=== PATIENT | male | born 1945 | race Caucasian/White ===

== ENCOUNTER 2016-05-29 05:09 | Day surgery (SDC) | payer OTHER ==
[2016-05-28 16:39] VITALS: BMI 22.8
[2016-05-29] MEDS ORDERED: PROPOFOL 20 ML ONE (13:10)
[2016-05-29] MEDS ORDERED: MIDAZOLAM HCL 2 MG/2 ML SINGLE DOSE VIAL ONE (13:10)
[2016-05-29] MEDS ORDERED: LIDOCAINE HCL/PF 2% SDV 5ML VIAL ONE (13:14)
--- NOTE | 2016-05-29 13:20 | HP ---
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 History of Present Illness: patient has undergone numerous surgical procedures on the metatarsal bones of the right foot to remove painful bumps on the bottom when he tries to run. Patient reports he walks ok but when playing tennis and trying to push off he feels the bumps. Although patient has undergone many surgical procedures to remove painful bumps , the patient has found more. He has requested that I remove bumps from the bottoms of the first, second, 4th, and 5th metatarsals. History Source: Medical Record (Medical history deferred to PCP) - Smoking History Smoking history: Never smoked Have you smoked in the past 12 months: No Aproximately how many cigarettes per day: 0 - Alcohol/Substance Use Hx Alcohol Use: No Home Medications - Allergies Allergies/Adverse Reactions: Allergies Allergy/AdvReac Type Severity Reaction Status Date / Time [place] And Derivatives Allergy Intermediate Swelling Verified 05/29/16 12:35 lactose Allergy Intermediate GI UPSET Verified 05/29/16 12:35 naproxen [From Naprosyn] Allergy Intermediate Rash Verified 05/29/16 12:35 nickel [Nickel] Allergy Intermediate Rash Verified 05/29/16 12:35 silver Allergy Mild Rash Verified 05/29/16 12:35 [From Argentum Metallicum] latex AdvReac Unknown Verified 05/29/16 12:35 CHROME Allergy Intermediate Rash Uncoded 05/29/16 12:35 DAIRY Allergy Intermediate STOMACH Uncoded 05/29/16 12:35 UPSET STAINLESS STEEL Allergy Intermediate Rash Uncoded 05/29/16 12:35 - Home Medications Home Medications: Ambulatory Orders NK [No Known Home Medication] 11/11/15 Physical Examination Vital Signs: Vital Signs Temperature 97.4 F L 05/29/16 12:32 Pulse Rate 66 05/29/16 12:32 Respiratory Rate 20 05/29/16 12:32 Blood Pressure 116/68 05/29/16 12:32 O2 Sat by Pulse Oximetry (%) 98 05/29/16 12:31 Extremities: Yes: Other (small palpable irregularities are palpable on the plantar surfaces of the right 1st, 2nd, 4th, and 5th metatarsals.) Peripheral Pulses: Left Doralis Pedis: 2+, Right Dorsalis Pedis: 2+ Assessment/Plan Assessment Patient has a rigid ankle, midfoot, and forefoot. Because of this rigidity, plantar metatarsal weight bearing surface always seems bumpy and painful, even though to the touch it is essentially flat and planar. Conservative measures essentially padding are continuously recommended to the patient but patient insists that just one more surgery will get him right. I have explained that this is unlikely especially because of the rigidity of the right foot. Plan Rasping, planing of bumps on the bottom surfaces of the right 1st, 2nd, 4th, and 5th metatarsal bones. Plantar incisions must be used because the areas cannot be accessed from the dorsum.
[2016-05-29] MEDS ORDERED: ceFAZolin SODIUM 1 GM VIAL ONE (13:54)
[2016-05-29] MEDS ORDERED: BUPIVACAINE HCL/PF 0.5% (5MG/ML) 10 ML VIAL IJ ONE (14:07)
[2016-05-29] MEDS ORDERED: LIDOCAINE 1%/EPI 1:100000 (20 ML MULTI DOSE VIAL) INF ONE (14:07)
[2016-05-29] MEDS ORDERED: DEXAMETHASONE SOD PHOSPHATE 4 MG/1 ML VIAL ONE (14:22)
[2016-05-29] MEDS ORDERED: oxyCODONE HCL 5 MG TABLET PO PRN (15:01)
[2016-05-29] MEDS ORDERED: ONDANSETRON 4 MG/2 ML VIAL IVPUSH PRN (15:01)
[2016-05-29] MEDS ORDERED: LACTATED RINGERS SOLUTION 1,000 ML IV SCH (15:15)
[2016-05-29 16:09] VITALS: BP 111/70; PULSE 62; TEMP 98.4
--- NOTE | 2016-05-30 21:32 | OP ---
DATE OF OPERATION: 05/29/2016 PREOPERATIVE DIAGNOSES: Hyperostosis, metatarsalgia right 1st, 2nd, 4th, and 5th metatarsals distal. POSTOPERATIVE DIAGNOSES: Hyperostosis, metatarsalgia right 1st, 2nd, 4th, and 5th metatarsals distal. PROCEDURE: Ostectomy from right 1st, 2nd, 4th, and 5th metatarsals from plantar insertions. DESCRIPTION OF PROCEDURE: Under fractional anesthesia and a surgical scrub with Betadine scrub and solution x2, the patient was draped using sterile technique. After 3 minutes of right limb elevation, a right ankle tourniquet was inflated to 250 mmHg pressure for 76 minutes. Inspection of the right foot showed essentially normal flat and unblemished plantar surface with the exception of a small scar, hyperostosis on the distal aspect of the 5th metatarsal area. Using a No. 15 surgical blade, a linear longitudinal incision was made on the plantar aspect of the foot in the intermetatarsal space between the right 1st and 2nd metatarsals and a 2nd incision between the right 4th and 5th metatarsals. The incision on the right 4th and 5th metatarsal area included a resection of the distal scar and hyperkeratosis using a double semielliptical-type incision. Both incisions were deepened through fascia and reflected exposing the joint capsule and deep fascia of the right 1st, 2nd, 4th, and 5th metatarsal pharyngeal joint areas. Using a No. 15 surgical blade, a longitudinal incision in the joint capsule was made inferior to the right 1st, 2nd, 4th, and 5th metatarsals. The plantar surfaces of the metatarsals were then inspected, and hyperostosis was identified on the plantar surfaces of all 4 bones. Using a rongeur and a bone rasp, these hyperostosis were resected and the remaining metatarsal was rasped smooth and round so that no prominence was visible or palpable at all 4 metatarsal locations. Following remodeling and resection of all bony prominences, the wounds were copiously irrigated with sterile saline. Individual metatarsal capsulotomy incisions were repaired with 4-0 Vicryl sutures and then the superior skin incisions were repaired with 4-0 Prolene horizontal mattress, and running sutures to promote eversion of skin edges and good plantar healing. Following the closure of the skin, the ankle tourniquet was deflated after 76 minutes of inflammation and vascular perfusion returned to all 5 digits so a dry sterile dressing with an Adaptic was applied to the plantar aspect of the foot. A large package of 4 x 4s were applied in the arch area and incorporated into the bandage to promote patient weightbearing in the arch and not on the metatarsal incisions. Ray bandages were used to complete the dressings. The patient tolerated the surgical procedure well and left the operating room stable, alert, awake and in no pain. MAKENNA GUERRERO/[id number]
--- NOTE | 2016-06-02 12:08 | PATH ---
Surgical Pathology Report Patient Name: CHA FRYE [facility]. Rec. #: [id number] /Age/Gender: 1945 (Age: 70) / M Account: [id number] Location: [facility] Taken: 05/29/2016 Received: 06/01/2016 Reported: 06/02/2016 Physicians: Charlie Grayson M.D. Specimen(s) Received A: SCAR TISSUE RIGHT FOOT B: BONE FRAGMENTS RIGHT FOOT METATARSAL Clinical History First, second, fourth, fifth metatarsalgia right foot Final Diagnosis A. SKIN AND SOFT TISSUE, RIGHT FOOT, SCAR, EXCISION: HYPERKERATOTIC SKIN WITH DERMAL SCAR. B. BONE, RIGHT FOOT, FIRST METATARSAL, OSTEOTOMY: FRAGMENTS OF BONE AND CARTILAGE WITH SCLEROSIS AND FOCAL DEGENERATIVE CHANGES. Electronically Signed Nathan Perez M.D. Gross Description A. Received in formalin, labeled "scar tissue right foot" is a 1.8 x 1.0 cm a solano, elliptical portion of skin excised to a depth of 0.5 cm. Chief Airline Radio Operator sections are submitted in one cassette. B. Received in formalin, labeled "bone pieces right foot metatarsal" is a 2.1 x 1.7 x 0.2 cm aggregate of solano bone fragments. The specimen is submitted in toto in one cassette, following decalcification. 06/01/201606/01/2016
== END 2016-05-29 18:45 | disposition home or self-care (01) ==
LOC: JASU-SURG 05:09
PROVIDERS: ATTEND Podiatrist Foot Surgery
PROC: 0QBN0ZZ Excision of Right Metatarsal, Open Approach (ICD-10-PCS; principal; 2016-05-29 13:30)
DX: M77.41 Metatarsalgia, right foot (principal)
CPT/HCPCS: 73630-TC-RT; 88304-TC; 88311-TC

== ENCOUNTER 2016-07-10 15:14 | Emergency (ER) | payer OTHER ==
[2016-07-10 15:21] VITALS: BMI 22.8
--- NOTE | 2016-07-10 16:59 | PDOC ---
[id number] 4d BLOOD IN URINE Time Seen by Provider: 07/10/16 16:33 - History of Present Illness Initial Comments: 07/10/16 19:48 CHIEF COMPLAINT: hematuria HISTORY OF PRESENT ILLNESS: 70 yo M with hx of multiple R foot surgeries presents to ED with hematuria x 2-3 days. Patient states that he has had this probably intermittently for the last 2 years, and was seen by urologist MD Santoro. He states that "a few months ago I had a retention problem and when they put the catheter, tons of clots came out." He is in the ED today for similar small clots, and reports that "I had a little bit of clots 2-3 days ago , it got better, but then I have had been losing quite a bit of blood in my urine and I feel a little lightheaded and sluggish." No recent travel or sick contacts. PAST MEDICAL HISTORY: Denies past medical history FAMILY HISTORY: Denies SOCIAL HISTORY: Denies tobacco, alcohol, illicit drug use. SURGICAL HISTORY: several foot surgeries ALLERGIES: citrus, lactose, naproxen, nickel, silver, latex, chrome, dairy, stainless steel REVIEW OF SYSTEMS General/Constitutional: Denies fever or chills. Denies weakness, weight change. HEENT: Denies change in vision. Denies ear pain or discharge. Denies sore throat. Cardiovascular: Denies chest pain or shortness of breath. Respiratory: Denies cough, wheezing, or hemoptysis. Gastrointestinal: Denies nausea, vomiting, diarrhea or constipation. Denies rectal bleeding. Genitourinary: Hematuria. Musculoskeletal: Denies joint or muscle swelling or pain. Denies neck or back pain. Skin and breasts: Denies rash or easy bruising. PHYSICAL EXAM General Appearance: Well-appearing, appropriately dressed. No apparent distress. HEENT: EOMI, PERRLA,normal voice. No conjunctival pallor. No photophobia, scleral icterus. Respiratory/Chest: Lungs CTAB. Cardiovascular: RRR. S1, S2. Gastrointestinal/Abdominal: Normal bowel sounds. Abdomen soft, non-distended. No tenderness or rebound tenderness. No organomegaly, pulsatile mass, guarding , hernia, hepatomegaly, splenomegaly. Musculoskeletal/Extremities: Normal inspection. FROM of all extremities, normal capillary refill. Pelvis Stable. No CVA tenderness. No tenderness to extremities, pedal edema, swelling, erythema or deformity. Integumentary: Appropriate color, dry, warm. No cyanosis, erythema, jaundice or rash Neurologic: technical business analyst II-XII intact. Fully oriented, alert. Appropriate mood/affect. Motor strength 5/5. No appreciable EOM palsy, facial droop or sensory deficit Past History - Past Medical History Allergies/Adverse Reactions: Allergies Allergy/AdvReac Type Severity Reaction Status Date / Time [place] And Derivatives Allergy Intermediate Swelling Verified 05/29/16 12:35 lactose Allergy Intermediate GI UPSET Verified 05/29/16 12:35 naproxen [From Naprosyn] Allergy Intermediate Rash Verified 05/29/16 12:35 nickel [Nickel] Allergy Intermediate Rash Verified 05/29/16 12:35 silver Allergy Mild Rash Verified 05/29/16 12:35 [From Argentum Metallicum] latex AdvReac Unknown Verified 05/29/16 12:35 CHROME Allergy Intermediate Rash Uncoded 05/29/16 12:35 DAIRY Allergy Intermediate STOMACH Uncoded 05/29/16 12:35 UPSET STAINLESS STEEL Allergy Intermediate Rash Uncoded 05/29/16 12:35 Home Medications: Ambulatory Orders Ciprofloxacin HCl [Cipro] 500 mg PO BID #14 tablet 07/11/16 Tamsulosin HCl [Flomax] 0.4 mg PO DAILY #10 cap.er.24h 07/11/16 Anemia: No Asthma: No Cancer: No Cardiac Disorders: No CVA: No COPD: No CHF: No Dementia: No Diabetes: No GI Disorders: Yes (WITH DAIRY) Disorders: No HTN: No Hypercholesterolemia: No Liver Disease: No Seizures: No Thyroid Disease: No - Surgical History Abdominal Surgery: Yes Appendectomy: Yes Cardiac Surgery: No Cholecystectomy: No Lung Surgery: No Neurologic Surgery: No Orthopedic Surgery: Yes (HAND -RT; MULTIPLE RIGHT FOOT) - Psycho/Social/Smoking Cessation Hx Suicidal Ideation: No Smoking Status: No Smoking History: Never smoked Have you smoked in the past 12 months: No Number of Cigarettes Smoked Daily: 0 Information on smoking cessation initiated: No Hx Alcohol Use: No Drug/Substance Use Hx: No Substance Use Type: None Hx Substance Use Treatment: No *Physical Exam - Vital Signs Last Vital Signs Temp Pulse Resp BP Pulse Ox 97.7 F 83 19 137/75 97 07/10/16 15:17 07/10/16 15:17 07/10/16 15:17 07/10/16 15:17 07/10/16 15:17 ED Treatment Course - LABORATORY CBC & Chemistry Diagram: 07/10/16 17:25 07/10/16 17:25 Medical Decision Making - Medical Decision Making 07/10/16 19:57 70 yo M with hx of multiple R foot surgeries presents to ED with hematuria x 2- 3 days. Bony blood to urine appreciated on exam. -CBC, CMP -UA, UCx -Renal/bladder ultrasound Abnormal Lab Results 07/10/16 07/10/16 07/10/16 17:25 17:25 17:25 Plt Count 120 L Eosinophils % 5.1 H D BUN 22 H Random Glucose 73 L D Urine Protein 2+ H Urine Blood 3+ H Ur Leukocyte Esterase Trace H Case discussed in detail with oncoming emergency provider including history, physical exam and ancillary studies. In brief, this patient is being seen in the ED for a chief complaint of: I have completed the initial assessment interview note and have ordered the following labs: CBC, CMP, UA, UCx I have reviewed the following results: all Pending results: renal/bladder US Please call the PCP: Luis Alberto Plan for disposition as follows: pending Oncoming NPRenard Calixto has assumed care for the patient and will complete the evaluation and treatment. 07/10/16 19:59 *DC/Admit/Observation/Transfer Diagnosis at time of Disposition: Hematuria - Discharge Dispostion Disposition: HOME Condition at time of disposition: Stable - Prescriptions Prescriptions: Ciprofloxacin HCl [Cipro] 500 mg PO BID #14 tablet Tamsulosin HCl [Flomax] 0.4 mg PO DAILY #10 cap.er.24h - Referrals Referrals: Gray Gaston MD., [Staff Physician] - Vida Sahu MD [Primary Care Provider] - - Patient Instructions Printed Discharge Instructions: DI for Hematuria Additional Instructions: As per our conversation, he needs to follow with the urologist within 48 hours. It is strongly advisable for you to get a cystoscopy to ascertain why you are experiencing blood in your urine. You do not have any fever nor did he have pain. He needs to also follow-up with your primary care physician. Return back to the emergency department for severe/persistent or worsening symptoms. Your preliminary ultrasound and CAT scan report was given to you upon discharge.
[2016-07-10 17:51] LABS: BASOPHIL 0.9 % (0-2.0); EOSINOPHIL 5.1 % (0-4.5); MCH 30.1 pg (25.7-33.7); MCHC 33.3 g/dl (32.0-35.9); MEAN CELL VOLUME 90.4 fl (80-96); MEAN PLT VOLUME 10.9 fl (7.5-11.1); NEUTROPHILS 67.1 % (42.8-82.8); PLATELET COUNT 120 K/MM3 (134-434); RDW 13.9 % (11.9-15.9); WHITE BLOOD COUNT 5.6 K/mm3 (4.0-10.0)
[2016-07-10 17:55] LABS: URINE APPEARANCE CLOUDY; URINE BILIRUBIN NEGATIVE (NEGATIVE); URINE COLOR RED; URINE GLUCOSE (UA) NEGATIVE (NEGATIVE); URINE KETONE NEGATIVE (NEGATIVE); URINE NITRITE NEGATIVE (NEGATIVE); URINE UROBILINOGEN NEGATIVE E.U./dl (0.2-1.0)
[2016-07-10 17:56] LABS: URINE BLOOD 3+ (NEGATIVE); URINE LEUK ESTERASE TRACE (NEGATIVE); URINE PROTEIN 2+ (NEGATIVE)
[2016-07-10 18:19] LABS: ALBUMIN 3.9 g/dl (3.4-5.0); ALK PHOS 107 U/L (45-117); ANION GAP 8 (8-16); BILIRUBIN,TOTAL 0.4 mg/dL (0.2-1.0); CALCIUM 9.5 mg/dL (8.5-10.1); CO2 32 mmol/L (21-32); COCKROFT - GAULT 75.94; CREATININE 0.9 mg/dL (0.7-1.3); GLUCOSE,RANDOM 73 mg/dL (74-106); SGOT/AST 16 U/L (15-37); SGPT/ALT 25 U/L (12-78); TOT PROT 7.5 g/dl (6.4-8.2)
[2016-07-10 19:08] LABS: URINE MUCUS FEW; URINE RBC 2373 /hpf (0-3); URINE WBC 20 /hpf (3-5)
--- NOTE | 2016-07-11 01:18 | PDOC ---
*Physical Exam - Vital Signs Last Vital Signs Temp Pulse Resp BP Pulse Ox 97.7 F 83 19 137/75 97 07/10/16 15:17 07/10/16 15:17 07/10/16 15:17 07/10/16 15:17 07/10/16 15:17 ED Treatment Course - LABORATORY CBC & Chemistry Diagram: 07/10/16 17:25 07/10/16 17:25 - ADDITIONAL ORDERS Additional order review: Laboratory Results 07/10/16 07/10/16 17:25 17:25 Sodium 141 Potassium 4.0 Chloride 101 Carbon Dioxide 32 Anion Gap 8 BUN 22 H Creatinine 0.9 Creat Clearance w eGFR > 60 Random Glucose 73 L D Calcium 9.5 Total Bilirubin 0.4 AST 16 ALT 25 Alkaline Phosphatase 107 Total Protein 7.5 Albumin 3.9 Urine Color Red Urine Appearance Cloudy Urine pH 5.0 Ur Specific [place] 1.016 Urine Protein 2+ H Urine Glucose (UA) Negative Urine Ketones Negative Urine Blood 3+ H Urine Nitrite Negative Urine Bilirubin Negative Urine Urobilinogen Negative Ur Leukocyte Esterase Trace H Urine RBC 2373 Urine WBC 20 Urine Mucus Few 07/10/16 17:25 RBC 4.70 MCV 90.4 MCHC 33.3 RDW 13.9 MPV 10.9 Neutrophils % 67.1 Lymphocytes % 18.9 Monocytes % 8.0 Eosinophils % 5.1 H D Basophils % 0.9 - RADIOLOGY Radiology Studies Ordered: Category Date Time Status SPIRAL- RENAL-STONE CT [CT] Stat CT Scan 07/10/16 22:13 Taken *DC/Admit/Observation/Transfer Diagnosis at time of Disposition: Hematuria - Discharge Dispostion Disposition: HOME Condition at time of disposition: Stable Admit: No - Referrals Referrals: Vida Sahu MD [Primary Care Provider] - Gray Gaston MD., MD [Staff Physician] - - Patient Instructions Printed Discharge Instructions: DI for Hematuria Additional Instructions: As per our conversation, he needs to follow with the urologist within 48 hours. It is strongly advisable for you to get a cystoscopy to ascertain why you are experiencing blood in your urine. You do not have any fever nor did he have pain. He needs to also follow-up with your primary care physician. Return back to the emergency department for severe/persistent or worsening symptoms. Your preliminary ultrasound and CAT scan report was given to you upon discharge.
[2016-07-11 05:48] VITALS: BP 134/74; PULSE 80; TEMP 97.8
== END 2016-07-11 01:58 | disposition home or self-care (01) ==
LOC: JER 15:14
DX: R31.9 Hematuria, unspecified (principal)
CPT/HCPCS: 36415; 74176; 76775-TC; 76856-TC; 80053; 81003; 81015; 85025; 87086; 99283-25

== ENCOUNTER 2016-09-25 06:11 | Day surgery (SDC) | payer OTHER ==
[2016-09-17 15:06] VITALS: BMI 22.8
[2016-09-25] MEDS ORDERED: MIDAZOLAM HCL 2 MG/2 ML SINGLE DOSE VIAL ONE (09:41)
[2016-09-25] MEDS ORDERED: PROPOFOL 20 ML ONE (09:41)
--- NOTE | 2016-09-25 09:45 | HP ---
Admitting History and Physical - Primary Care Physician PCP: Charlie Grayson ([place]) - Admission Chief Complaint: Palpable lumb or bump on the distal aspect of the right 4th metatarsal had that presents pain on ambulation. History of Present Illness: Patient has undergone multiple reconstructive surgical procedures on the plantar aspect of the right foot to "equalize" the metatarsal bone prominences. He has developed a new pressure point that he finds difficult to walk on. He always declines accommodation and requires surgical excision. History Source: Medical Record - Smoking History Smoking history: Never smoked Have you smoked in the past 12 months: No Aproximately how many cigarettes per day: 0 - Alcohol/Substance Use Hx Alcohol Use: No Home Medications - Allergies Allergies/Adverse Reactions: Allergies Allergy/AdvReac Type Severity Reaction Status Date / Time [place] And Derivatives Allergy Intermediate Swelling Verified 09/25/16 09:03 lactose Allergy Intermediate GI UPSET Verified 09/25/16 09:03 naproxen [From Naprosyn] Allergy Intermediate Rash Verified 09/25/16 09:03 nickel [Nickel] Allergy Intermediate Rash Verified 09/25/16 09:03 silver Allergy Mild Rash Verified 09/25/16 09:03 [From Argentum Metallicum] latex AdvReac Unknown Verified 09/25/16 09:03 CHROME Allergy Intermediate Rash Uncoded 09/25/16 09:03 DAIRY Allergy Intermediate STOMACH Uncoded 09/25/16 09:03 UPSET STAINLESS STEEL Allergy Intermediate Rash Uncoded 09/25/16 09:03 - Home Medications Home Medications: Ambulatory Orders Finasteride [Proscar -] 5 mg PO DAILY 09/17/16 Physical Examination Vital Signs: Vital Signs Temperature 97.4 F L 09/25/16 08:52 Pulse Rate 71 09/25/16 08:52 Respiratory Rate 18 09/25/16 08:52 Blood Pressure 121/75 09/25/16 08:52 O2 Sat by Pulse Oximetry (%) 97 09/25/16 08:53 Extremities: Yes: Other (small palpable bone prominence on the distal aspect of the right 4th metatarsal.) Assessment/Plan Assessment Mild hyperostosis right plantar distal 4th metatarsal Plan Resection through plantar incision because it is not accessible from the dorsum.
[2016-09-25] MEDS ORDERED: ceFAZolin SODIUM 1 GM VIAL ONE (10:04)
[2016-09-25] MEDS ORDERED: LIDOCAINE 1%/EPI 1:100000 (20 ML MULTI DOSE VIAL) INF ONE (10:17)
[2016-09-25] MEDS ORDERED: BUPIVACAINE HCL/PF 0.5% (5MG/ML) 10 ML VIAL IJ ONE (10:17)
[2016-09-25] MEDS ORDERED: ACETAMINOPHEN 325 MG TABLET (FP) PO PRN (10:54)
[2016-09-25] MEDS ORDERED: ONDANSETRON 4 MG/2 ML VIAL IVPUSH PRN (10:54)
[2016-09-25] MEDS ORDERED: LACTATED RINGERS SOLUTION 1,000 ML IV SCH (11:00)
[2016-09-25 11:35] VITALS: TEMP 98.2
--- NOTE | 2016-09-25 12:04 | OP ---
DATE OF OPERATION: 09/25/2016 PREOPERATIVE DIAGNOSES: Hyperostosis plantar aspect of the left 4th metatarsal. POSTOPERATIVE DIAGNOSES: Hyperostosis plantar aspect of the left 4th metatarsal. PROCEDURE: Rasping of the plantar aspect of the 4th metatarsal. DESCRIPTION OF PROCEDURE: Under fractional anesthesia and a surgical scrub with Betadine scrub and solution x2, the patient was draped using sterile technique. Inspection of the plantar aspect of the right foot showed a palpable, prominent bump subcutaneously on the distal aspect of the right 4th metatarsal. Using a No. 15 surgical blade, a linear longitudinal incision was made in the plantar aspect of the right foot just medial to the palpable prominence. The incision was deepened through fascia and retracted. The tissue was longitudinally incised, and the plantar aspect of the 4th metatarsal was exposed. Inspection of the plantar 4th metatarsal shaft showed minor hyperostosis-type projections from the bottom of the 4th metatarsal. Using a bone rasp, these were smoothed and then the wound was copiously irrigated with sterile saline. It should be noted that there was no tissue for excision. The plantar aspect of the bone was simply rasped smooth. Following irrigation, the soft tissues were reapproximated as a single layer and closed with 4-0 nylon mattress and simple sutures. A dry sterile dressing was applied to the right foot. The patient tolerated the surgical procedure well and left the operating room stable, alert, awake and in no pain. MAKENNA GUERRERO/[id number]
[2016-09-25 14:43] VITALS: BP 110/64; PULSE 65
[2016-09-26] MEDS ORDERED: FINASTERIDE PO SCH (10:00)
== END 2016-09-25 14:56 | disposition home or self-care (01) ==
LOC: JASU-SURG 06:11
PROVIDERS: ATTEND Podiatrist Foot Surgery
PROC: 0QTN0ZZ Resection of Right Metatarsal, Open Approach (ICD-10-PCS; principal; 2016-09-25 10:00)
DX: M77.41 Metatarsalgia, right foot (principal)
CPT/HCPCS: 73630-TC-RT; 94760

== ENCOUNTER 2017-11-20 19:17 | Emergency (ER) | payer OTHER ==
[2017-11-20 19:27] VITALS: BP 133/80; PULSE 63; TEMP 98; BMI 21.5
--- NOTE | 2017-11-20 21:19 | PDOC ---
Attending Attestation - Resident Resident Name: Chata Woods - ED Attending Attestation I have performed the following: I have examined & evaluated the patient, The case was reviewed & discussed with the resident, I agree w/resident's findings & plan - HPI HPI: 11/20/17 22:32 The patient is a 71 year old male, with no significant past medical history, who presents to the emergency department with, left sided pain. As per patient, he woke up with left sided pain, worsening when sitting down. As per patient, he was just on two rounds of antibiotics after an oral bone graft procedure. Ever since taking his second course of antibiotics he reports his bowel movements have been loose. He reports 1 week of mild lightheadedness which resolves with playing tennis. He denies any recent fevers, chills, headache or dizziness. He denies any recent nausea, vomit, or constipation. He denies any recent chest pain or shortness of breath. He denies any recent dysuria, frequency, urgency or hematuria. Past surgical history: Bone graft. Appendectomy. Hernia repair. Social History: Nonsmoker. Denies EtOH use and recreational drug use. Primary Care Physician: Dr. Sahu - Physicial Exam PE: 11/20/17 22:32 GENERAL: Awake, alert, and fully oriented, in no acute distress HEAD: No signs of trauma EYES: PERRLA, EOMI, sclera anicteric, conjunctiva clear ENT: Auricles normal inspection, hearing grossly normal, nares patent, oropharynx clear without exudates. Moist mucosa NECK: Normal ROM, supple, no lymphadenopathy, JVD, or masses LUNGS: Breath sounds equal, clear to auscultation bilaterally. No wheezes, and no crackles HEART: Regular rate and rhythm, normal S1 and S2, no murmurs, rubs or gallops +ABDOMEN: Gassy bowel sounds. Soft, nontender. No guarding, no rebound. No masses EXTREMITIES: Normal range of motion, no edema. No clubbing or cyanosis. No cords, erythema, or tenderness NEUROLOGICAL: Cranial nerves II through XII grossly intact. Normal speech, normal gait SKIN: Warm, Dry, normal turgor, no rashes or lesions noted. <Mavis Espinal - Last Filed: 11/20/17 22:32> - Medical Decision Making 11/21/17 00:32 Pt has a UTI and he will be treated with bactrim DS. Home with meds and PMD follow up. <Ilana Ocampo - Last Filed: 11/21/17 00:33> Attestations - Attestations 11/20/17 22:33 Documentation prepared by Mavis Espinal, acting as medical practitioners for Ilana Ocampo MD. <Mavis Espinal - Last Filed: 11/20/17 22:32>
--- NOTE | 2017-11-20 21:20 | PDOC ---
History of Present Illness - General Chief Complaint: Pain Stated Complaint: PAIN, ACUTE Time Seen by Provider: 11/20/17 20:55 History Source: Patient Exam Limitations: No Limitations - History of Present Illness Initial Comments: 11/20/17 21:11 Pt is a 71yo m with no significant PMH presenting to ED with left sided pain. Pt said today he awoke to acute pain on his L side which didn't go away. It does not radiate to the abdomen or back. It gets worse when he slouches in his chair. Pt said he Googled symptoms and thought he might have a PE. Pt said he had a bone graft surgery in his jaw about a month ago and was placed on 2 antibiotics. He was placed on the second one around 1 week ago and said that his "bowels have been messed up". He has been having looser stools and started feeling "Mild lightheadedness" for 1 week which goes away when he plays tennis. Pt plays tennis and recently started playing again last week. He denies dizziness, shortness of breath, palpitations, chest pain, cough, numbness, tingling, urinary symptoms, N/V/D PCP: Dr. Sahu PMH: none PSH: bone graft, appendectomy, hernia repair Meds: antibiotics Social: denies 11/20/17 21:22 Past History - Past Medical History Allergies/Adverse Reactions: Allergies Allergy/AdvReac Type Severity Reaction Status Date / Time Solon And Derivatives Allergy Intermediate Swelling Verified 11/20/17 19:27 lactose Allergy Intermediate GI UPSET Verified 11/20/17 19:27 naproxen [From Naprosyn] Allergy Intermediate Rash Verified 11/20/17 19:27 nickel [Nickel] Allergy Intermediate Rash Verified 11/20/17 19:27 silver Allergy Mild Rash Verified 11/20/17 19:27 [From Argentum Metallicum] latex AdvReac Unknown Verified 11/20/17 19:27 CHROME Allergy Intermediate Rash Uncoded 11/20/17 19:27 DAIRY Allergy Intermediate STOMACH Uncoded 11/20/17 19:27 UPSET STAINLESS STEEL Allergy Intermediate Rash Uncoded 11/20/17 19:27 Home Medications: Ambulatory Orders Finasteride [Proscar -] 5 mg PO DAILY 09/17/16 Sulfamethoxazole/Trimethoprim [Bactrim Ds -] 1 tab PO BID #14 tablet 11/20/17 Anemia: No Asthma: No Cancer: No Cardiac Disorders: No CVA: No COPD: No CHF: No Dementia: No Diabetes: No GI Disorders: Yes (WITH DAIRY) Disorders: No HTN: No Hypercholesterolemia: No Liver Disease: No Seizures: No Thyroid Disease: No - Surgical History Abdominal Surgery: Yes Appendectomy: Yes Cardiac Surgery: No Cholecystectomy: No Lung Surgery: No Neurologic Surgery: No Orthopedic Surgery: Yes (HAND -RT; MULTIPLE RIGHT FOOT) - Immunization History Immunization Up to Date: No - Suicide/Smoking/Psychosocial Hx Smoking Status: No Smoking History: Never smoked Have you smoked in the past 12 months: No Number of Cigarettes Smoked Daily: 0 Information on smoking cessation initiated: No Hx Alcohol Use: No Drug/Substance Use Hx: No Substance Use Type: None Hx Substance Use Treatment: No Review of Systems - Review of Systems Constitutional: No: Chills, Fever, Weakness HEENTM: No: Recent change in vision, Double Vision Respiratory: No: Cough, Shortness of Breath Cardiac (ROS): Yes: Lightheadedness. No: Chest Pain, Palpitations, Syncope ABD/GI: No: Abd. Pain w/ defecation, Constipated, Diarrhea, Nausea, Rectal Bleeding, Vomiting : Yes: Flank Pain. No: Burning, Dysuria, Hematuria, Testicular Mass, Testicular Swelling, Testicular Pain Musculoskeletal: Yes: Muscle Pain (L sided back pain). No: Joint Pain, Muscle Weakness Neurological: No: Headache, Numbness, Paresthesia, Weakness *Physical Exam - Vital Signs Last Vital Signs Temp Pulse Resp BP Pulse Ox 98.0 F 63 16 133/80 100 11/20/17 19:25 11/20/17 19:25 11/20/17 19:25 11/20/17 19:25 11/20/17 19:25 - Physical Exam General Appearance: Yes: Nourished, Appropriately Dressed. No: Apparent Distress HEENT: positive: EOMI, LEA, Pharynx Normal, Other (Lower jaw is not erythematous, no drainage. healing. ). negative: Gray Neck: positive: Trachea midline, Supple. negative: Lymphadenopathy (R), Lymphadenopathy (L) Respiratory/Chest: positive: Lungs Clear, Normal Breath Sounds. negative: Crackles, Rales, Stridor, Wheezing Cardiovascular: positive: Regular Rhythm, Regular Rate, S1, S2. negative: JVD, Murmur Vascular Pulses: Dorsalis-Pedis (R): 2+, Doralis-Pedis (L): 2+ Gastrointestinal/Abdominal: positive: Normal Bowel Sounds, Soft. negative: Guarding, Rebound, Tenderness Musculoskeletal: positive: Other. negative: CVA Tenderness (R), CVA Tenderness (L), Vertebral Tenderness Extremity: positive: Normal Capillary Refill Integumentary: positive: Normal Color, Dry, Warm Neurologic: positive: neonatal social worker II-XII NML intact, Fully Oriented, Alert, Normal Mood/ Affect, Normal Response, Motor Strength 07/31 ED Treatment Course - LABORATORY CBC & Chemistry Diagram: 11/20/17 21:48 11/20/17 21:48 Medical Decision Making - Medical Decision Making 11/20/17 21:57 Pt is a 71yo m with no significant PMH presenting to ED with left sided pain. DDx: nephrolithiasis, pyelonephritis, colitis, PNA, ACS, msk loose stools most likely related to antibiotic use. Low suspicion for abdominal etiologies of pain. Vitals wnl, no chest pain, no medical conditions, low suspcion for ACS. No fever, cough, SOB, low suspicion for pna. Will order UA, UC check labs. 11/20/17 22:49 UA showed 2+ le and 22 wbc. Will treat for uti. Pt given dose here in ED and will take PO. Pt hemodynamically stable, afebrile and said pain is not intense. Pt can be d/c home. pt given strict return precautions. *DC/Admit/Observation/Transfer Diagnosis at time of Disposition: UTI (urinary tract infection) Qualifiers: Urinary tract infection type: site unspecified Hematuria presence: without hematuria Qualified Code(s): N39.0 - Urinary tract infection, site not specified - Discharge Dispostion Disposition: HOME Condition at time of disposition: Improved Decision to Admit order: No - Prescriptions Prescriptions: Sulfamethoxazole/Trimethoprim [Bactrim Ds -] 1 tab PO BID #14 tablet - Referrals Referrals: Vida Sahu MD [Primary Care Provider] - - Patient Instructions Additional Instructions: You were seen here today because you were having left sided pain. We did some lab work and checked your urine. Your results showed a urinary tract infection. Please follow up with your PCP within the next few days. Try to rest, do not over exert yourself and drink lots of water. You can take ibuprofen or Tylenol for pain control as needed. Please come back to the ED if: the pain gets worse, you notice blood in your urine, you are unable to urinate, you feel more lightheaded, you start to vomit , diarrhea gets worse, you develop fever/chills, you start to feel dizzy, if you lose consciousness or if any new concerning symptom develops. Thank you - Post Discharge Activity
[2017-11-20 21:57] LABS: BASO % 0.7 % (0-2.0); EOS % 0.6 % (0-4.5); HEMATOCRIT 39.2 % (35.4-49); HEMOGLOBIN 13.3 GM/dL (11.7-16.9); LYMPH % 8.8 % (8-40); MCH 30.8 pg (25.7-33.7); MCHC 33.9 g/dl (32.0-35.9); MEAN CELL VOLUME 90.8 fl (80-96); MEAN PLT VOLUME 10.3 fl (7.5-11.1); MONO % 5.9 % (3.8-10.2); PLATELET COUNT 128 K/MM3 (134-434); RBC 4.32 M/mm3 (4.00-5.60); RDW 13.8 % (11.9-15.9)
[2017-11-20 22:10] LABS: URINE APPEARANCE CLEAR; URINE BILIRUBIN NEGATIVE (<2.0 mg/dL); URINE COLOR LTYELLOW; URINE GLUCOSE (UA) NEGATIVE (NEGATIVE); URINE KETONE TRACE (NEGATIVE); URINE NITRITE NEGATIVE (NEGATIVE); URINE PROTEIN NEGATIVE (NEGATIVE); URINE UROBILINOGEN NEGATIVE mg/dL (0.2-1.0)
[2017-11-20 22:16] LABS: URINE LEUK ESTERASE 2+ (NEGATIVE)
[2017-11-20 22:21] LABS: EPI CELLS RARE /HPF (FEW); URINE MUCUS RARE
[2017-11-20 22:22] LABS: ALBUMIN 3.6 g/dl (3.4-5.0); ANION GAP 6 MMOL/L (8-16); BILIRUBIN,TOTAL 0.3 mg/dL (0.2-1.0); BLOOD UREA NITROGEN 28 mg/dL (7-18); CALCIUM 8.8 mg/dL (8.5-10.1); CHLORIDE 105 mmol/L (98-107); CO2 28 mmol/L (21-32); CREATININE 1.3 mg/dL (0.7-1.3); GLUCOSE,RANDOM 97 mg/dL (74-106); POTASSIUM 4.3 mmol/L (3.5-5.1); SGOT/AST 22 U/L (15-37); SGPT/ALT 28 U/L (12-78); SODIUM 139 mmol/L (136-145)
[2017-11-20] MEDS ORDERED: SULFAMETHOXAZOLE/TRIMETHOPRIM 800MG/160MG D.S. TABLET PO ONE (22:22)
[2017-11-20 22:23] LABS: ALK PHOS 109 U/L (45-117)
[2017-11-20] MEDS ORDERED: ACETAMINOPHEN 325 MG TABLET (FP) PO ONE (22:30)
[2017-11-20] MEDS ORDERED: ACETAMINOPHEN 325 MG TABLET (FP) ONE (22:53)
[2017-11-20] MEDS ORDERED: SULFAMETHOXAZOLE/TRIMETHOPRIM 800MG/160MG D.S. TABLET ONE (22:54)
== END 2017-11-20 22:58 | disposition home or self-care (01) ==
LOC: JERFT 19:17 → JER 19:17
DX: N39.0 Urinary tract infection, site not specified (principal)
CPT/HCPCS: 36415; 80053; 81003; 81015; 85025; 87086; 99283-25

== ENCOUNTER 2018-03-18 05:09 | Day surgery (SDC) | payer OTHER ==
[2018-03-09 15:12] VITALS: BMI 21.5
[2018-03-18] MEDS ORDERED: ONDANSETRON 4 MG/2 ML VIAL IVPUSH PRN (16:21)
[2018-03-18] MEDS ORDERED: PROMETHAZINE HCL 25 MG/1 ML VIAL IVPB PRN (16:21)
[2018-03-18] MEDS ORDERED: LACTATED RINGERS SOLUTION 1,000 ML IV SCH (16:30)
[2018-03-18] MEDS ORDERED: PROPOFOL 20 ML ONE ×2 (16:55→18:08)
[2018-03-18] MEDS ORDERED: MIDAZOLAM HCL 2 MG/2 ML SINGLE DOSE VIAL ONE (16:55)
[2018-03-18] MEDS ORDERED: SODIUM CHLORIDE 0.9% P/F 10 ML VIAL IJ ONE (16:56)
[2018-03-18] MEDS ORDERED: ceFAZolin SODIUM 1 GM VIAL ONE (16:56)
[2018-03-18] MEDS ORDERED: BUPIVACAINE HCL/PF 0.5% (5MG/ML) 10 ML VIAL ONE (17:09)
[2018-03-18] MEDS ORDERED: ceFAZolin SODIUM 1 GM VIAL IVPB ONE (17:12)
[2018-03-18 20:42] VITALS: BP 133/69; PULSE 71; TEMP 97.9
--- NOTE | 2018-03-19 07:10 | OP ---
DATE OF OPERATION: 03/18/2018 SURGEON: Charlie Grayson DPM PREOPERATIVE DIAGNOSES: 1. Right bunion with lateral hallux valgus. 2. Right 4th metatarsal pain, metatarsalgia, distal and proximal 4th metatarsal. 3. 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 4. Right 5th metatarsalgia. PROCEDURES: 1. Right Heart type bunionectomy. 2. Ostectomy of the right 4th metatarsal both distal and proximal. 3. Ostectomy of the right 5th metatarsal distal. 4. Arthroplasty of the right 4th toe proximal interphalangeal joint. Under fractional anesthesia and a surgical scrub with Betadine scrub and solution x2 the patient was draped using sterile technique. After 3 minutes of right limb elevation a right ankle tourniquet was inflated to 250 mmHg pressure for 78 minutes. Inspection of the right foot showed a significantly laterally and dorsally displaced hallux on the 1st metatarsal and palpation of the right foot showed bony prominences below the 5th metatarsal head or distal aspect of the right 5th metatarsal, the proximal aspect of the 5th toe base and the distal and proximal aspects of the right 4th metatarsal. Also a prominent proximal phalangeal head was noted and complained of by the patient at the right 4th toe. Using a No. 15 surgical blade a linear longitudinal incision was made on the plantar aspect of the right foot between the base of the 5th toe and the 5th metatarsal distal. The incision was deepened through fascia and deep tissue exposing bony prominences at both sites. Using a bone rasp these bony prominences were gently smoothed. The lateral aspect of the 5th metatarsal head was similarly smoothed with the bone rasp and the distal aspect of the plantar 5th metatarsal was gently smoothed with the bone rasp. The wound was irrigated with sterile saline and then 4-0 Vicryl was used to close soft tissues deeply and then 4-0 nylon simple interrupted sutures were used to close the skin at the site. Attention was then directed to the plantar aspect and proximal aspect of the right foot at the base of the 4th metatarsal. A curvilinear incision was made just medial to the 4th metatarsal being careful not to interrupt deep tissues more medially. The bony prominence of the base of the 4th metatarsal was identified and it was resected using a rongeur and a bone rasp. The wound was copiously irrigated with sterile saline and then deep tissues were closed with 4-0 Vicryl and skin with 4-0 nylon simple interrupted sutures. Attention was then directed to the distal aspect of the 4th metatarsal. A 1-cm linear longitudinal incision was made just medial to the bony prominence that was identified on palpation. The incision was deepened to bone and reflected exposing the bone exostosis. This was resected using the bone rasp. The wound was irrigated with sterile saline and then closed in similar fashion to the prior incisions. Attention was then directed to the dorsal aspect of the right foot where the 4th toe was laterally deviated and hammered. The patient complained of significant pain at the head of the proximal phalanx so a longitudinal incision was made at the site. The head of the proximal phalanx that was fused to the middle phalanx could not be at the joint so using a bone-cutting forceps proximal and distal osteotomy was performed to remove the prominent bone. The wound was irrigated with sterile saline and then closed using 4-0 Vicryl and 4-0 nylon in similar fashion to the other incisions. Lastly attention was directed to the rigidly dorsiflexed and laterally positioned hallux at the 1st metatarsophalangeal joint. A linear longitudinal incision was made at the dorsal aspect of the 1st metatarsophalangeal joint. Superficial tissues were longitudinally incised and reflected. A large dense fibrotic plug of soft tissue was found where bone and joint used to be. Using a No. 15 blade a lateral incision was made into the soft tissue structures, the fibrosis, scar tissue, pseudarthrosis at the site and then the toe was adducted towards the body to straighten it. It was impossible for me to plantarflex the toe to any significant degree, but the toe was positioned into the most anatomically correct position possible and then splintage was completed with a 0.062 Denise wire. The wire was bent over and cut and exposed at the distal aspect of the toe. Deep tissues were then reapproximated with 4-0 Vicryl and sutured and then skin was reapproximated and closed with 4-0 nylon simple interrupted sutures as previously described. The ankle tourniquet was deflated after 78 minutes of inflation. Vascular perfusion immediately returned to all 5 digits so a dry sterile dressing was applied to the right foot. The patient tolerated the surgical procedure well and left the operating room stable, alert, awake and in no pain. MAKENNA GUERRERO/[id number]
--- NOTE | 2018-03-24 18:25 | PATH ---
Surgical Pathology Report Patient Name: [facility]. Rec. #: [id number] /Age/Gender: 1945 (Age: 72) / M Account: [id number] Location: [facility] SURGICAL Taken: 03/18/2018 Received: 03/21/2018 Reported: 03/24/2018 Physicians: Charlie Grayson M.D. Specimen(s) Received BONE FROM 4TH METATARSAL RIGHT FOOT Clinical History Hallux valgus/metatarsalgia/hammer toe right foot Final Diagnosis FOOT, FOURTH METATARSAL BONE, RIGHT, DUNCAN BUNIONECTOMY, OSTEOTOMY, FOURTH METATARSAL BASE ARTHROPLASTY: BONE WITH DEGENERATIVE CHANGES. DENSE FIBROCONNECTIVE TISSUE AND FIBROVASCULAR TISSUE. Electronically Signed Stefani Alarcon M.D. Gross Description Received in formalin labeled "bone from fourth metatarsal right foot" are multiple irregular fragments of white-solano bone and soft tissue measure 1.5 x 1.5 x 1 cm in aggregate. The entire specimen is submitted after decalcification in one cassette. MLSZ/03/21/2018 sanml/03/21/2018
== END 2018-03-18 20:30 | disposition home or self-care (01) ==
LOC: JASU-SURG 05:09
PROVIDERS: ATTEND Podiatrist Foot Surgery
PROC: 0QBN0ZZ Excision of Right Metatarsal, Open Approach (ICD-10-PCS; 2018-03-18)
PROC: 0SQP0ZZ Repair Right Toe Phalangeal Joint, Open Approach (ICD-10-PCS; 2018-03-18)
PROC: 0QBN0ZZ Excision of Right Metatarsal, Open Approach (ICD-10-PCS; 2018-03-18)
PROC: 0QBQ0ZZ Excision of Right Toe Phalanx, Open Approach (ICD-10-PCS; principal; 2018-03-18 15:30)
DX: M20.11 Hallux valgus (acquired), right foot (principal); M77.41 Metatarsalgia, right foot; M20.41 Other hammer toe(s) (acquired), right foot
CPT/HCPCS: 88305-TC; 88311-TC; 94760

== ENCOUNTER 2020-10-07 04:56 | Day surgery (SDC) | payer OTHER ==
[2020-10-04 19:24] VITALS: BMI 20.7
[2020-10-07] MEDS ORDERED: MIDAZOLAM HCL 2 MG/2 ML SINGLE DOSE VIAL ONE ×3 (09:21→11:55)
[2020-10-07] MEDS ORDERED: PROPOFOL 20 ML ONE ×3 (09:21→12:52)
[2020-10-07] MEDS ORDERED: BUPIVACAINE HCL 100 ML ONE (10:52)
[2020-10-07] MEDS ORDERED: LIDOCAINE 1%/EPI 1:100000 (20 ML MULTI DOSE VIAL) ONE (10:52)
[2020-10-07] MEDS ORDERED: ceFAZolin 2 GRAM PREMIX BAG IVPB ONE (12:00)
[2020-10-07] MEDS ORDERED: LIDOCAINE 1%/EPI 1:100000 (20 ML MULTI DOSE VIAL) IJ ONE (12:15)
[2020-10-07] MEDS ORDERED: BUPIVACAINE HCL/PF 0.5% (5MG/ML) 10 ML VIAL IJ ONE (12:15)
[2020-10-07] MEDS ORDERED: oxyCODONE HCL 5 MG TABLET PO PRN (13:06)
[2020-10-07] MEDS ORDERED: ONDANSETRON 4 MG/2 ML VIAL IVPUSH PRN (13:06)
[2020-10-07] MEDS ORDERED: LACTATED RINGERS SOLUTION 1,000 ML IV SCH (13:15)
[2020-10-07 15:33] VITALS: TEMP 97.9
[2020-10-07 16:16] VITALS: BP 122/76; PULSE 68
== END 2020-10-07 15:30 | disposition home or self-care (01) ==
LOC: JASU-SURG 04:56
PROVIDERS: ATTEND Podiatrist Foot Surgery
PROC: 0QSP04Z Reposition Left Metatarsal with Internal Fixation Device, Open Approach (ICD-10-PCS; 2020-10-07)
PROC: 0SNN0ZZ Release Left Metatarsal-Phalangeal Joint, Open Approach (ICD-10-PCS; principal; 2020-10-07 11:30)
DX: S93.145A Subluxation of metatarsophalangeal joint of left lesser toe(s), initial encounter (principal); M21.612 Bunion of left foot; X58.XXXA Exposure to other specified factors, initial encounter; Y93.9 Activity, unspecified; Y92.9 Unspecified place or not applicable; Y99.9 Unspecified external cause status
CPT/HCPCS: 73610-TC-LT-FY; 73630-TC-LT; 88304-TC; 88311-TC; 94760

== ENCOUNTER 2021-03-20 19:10 | Inpatient (IN) | payer OTHER ==
[2021-03-20] MEDS ORDERED: VANCOMYCIN 1 GM in D5W (PRE-DOCKED) 1,000 MG/250 ML IVPB ONE (20:53)
[2021-03-20] MEDS ORDERED: CLINDAMYCIN 600MG PREMIX IVPB 600 MG/50 ML BAG IVPB ONE ×2 (20:55→21:12)
[2021-03-20 21:18] LABS: BASO % 0.4 % (0-2.0); EOS % 4.7 % (0-4.5); HEMATOCRIT 31.5 % (35.4-49); HEMOGLOBIN 10.6 GM/dL (11.7-16.9); LYMPH % 12.9 % (8-40); MCH 30.6 pg (25.7-33.7); MCHC 33.6 g/dl (32.0-35.9); MEAN CELL VOLUME 91.1 fl (80-96); MEAN PLT VOLUME 9.7 fl (7.5-11.1); PLATELET COUNT 157 10^3/uL (134-434); RBC 3.46 M/mm3 (4.00-5.60); RDW 13.9 % (11.9-15.9); WHITE BLOOD COUNT 5.7 K/mm3 (4.0-10.0)
[2021-03-20 21:48] LABS: ALBUMIN 2.4 g/dl (3.4-5.0); BLOOD UREA NITROGEN 13.5 mg/dL (7-18); CALCIUM 8.3 mg/dL (8.5-10.1)
[2021-03-20 21:51] LABS: CREATININE 0.5 mg/dL (0.55-1.3)
[2021-03-20 21:53] LABS: BILIRUBIN,TOTAL 0.5 mg/dL (0.2-1); TOT PROT 5.5 g/dl (6.4-8.2)
[2021-03-21] MEDS ORDERED: ceFAZolin SODIUM 1 GM VIAL ONE ×3 (02:39→16:36)
[2021-03-21] MEDS: CEFAZOLIN 1 GM in DEXTROSE 5%-WATER - 50 ML IVPB SCH ×3 (02:58→17:38)
[2021-03-21 05:47] VITALS: BMI 22.4
[2021-03-21] MEDS ORDERED: DEXTROSE 5%-WATER - 50 ML IVPB ONE ×2 (09:24→16:37)
[2021-03-21] MEDS: ENOXAPARIN NA (PORCINE) 40 MG/0.4 ML DISP.SYRIN SQ SCH (09:36)
[2021-03-21 10:39] LABS: BASO % 0.6 % (0-2.0); EOS % 7.5 % (0-4.5); HEMATOCRIT 29.4 % (35.4-49); HEMOGLOBIN 9.9 GM/dL (11.7-16.9); LYMPH % 19.8 % (8-40); MCH 30.7 pg (25.7-33.7); MCHC 33.6 g/dl (32.0-35.9); MEAN CELL VOLUME 91.3 fl (80-96); MEAN PLT VOLUME 9.7 fl (7.5-11.1); MONO % 9.2 % (3.8-10.2); NEUT % 62.9 % (42.8-82.8); PLATELET COUNT 157 10^3/uL (134-434); RBC 3.22 M/mm3 (4.00-5.60); RDW 13.8 % (11.9-15.9); RETICULOCYTES 2.46 % (0.5-1.5); WHITE BLOOD COUNT 4.5 K/mm3 (4.0-10.0)
[2021-03-21 10:46] LABS: CALCIUM 8.1 mg/dL (8.5-10.1)
[2021-03-21 10:47] LABS: ALBUMIN 2.1 g/dl (3.4-5.0); BLOOD UREA NITROGEN 11.4 mg/dL (7-18)
[2021-03-21 10:49] LABS: CREATININE 0.6 mg/dL (0.55-1.3)
[2021-03-21 10:51] LABS: BILIRUBIN,TOTAL 0.3 mg/dL (0.2-1)
[2021-03-21] MEDS ORDERED: POTASSIUM CHLORIDE TABS 20 MEQ TABLET.ER (FP) PO ONE (11:35)
[2021-03-21 11:57] LABS: MAGNESIUM 2.3 mg/dL (1.8-2.4)
[2021-03-22] MEDS ORDERED: DEXTROSE 5%-WATER - 50 ML IVPB ONE ×3 (00:06→16:49)
[2021-03-22] MEDS ORDERED: ceFAZolin SODIUM 1 GM VIAL ONE ×3 (00:06→16:49)
[2021-03-22] MEDS: CEFAZOLIN 1 GM in DEXTROSE 5%-WATER - 50 ML IVPB SCH ×3 (01:11→18:26)
[2021-03-22] MEDS: ENOXAPARIN NA (PORCINE) 40 MG/0.4 ML DISP.SYRIN SQ SCH (09:36)
[2021-03-22] MEDS: FERROUS SO4 325 MG TABLET (FP) PO SCH (09:37)
[2021-03-22 10:23] LABS: BASO % 0.7 % (0-2.0); HEMATOCRIT 33.4 % (35.4-49); HEMOGLOBIN 11.1 GM/dL (11.7-16.9); LYMPH % 11.3 % (8-40); MCH 30.1 pg (25.7-33.7); MCHC 33.2 g/dl (32.0-35.9); MEAN CELL VOLUME 90.7 fl (80-96); MEAN PLT VOLUME 9.4 fl (7.5-11.1); PLATELET COUNT 219 10^3/uL (134-434); RBC 3.68 M/mm3 (4.00-5.60); RDW 13.8 % (11.9-15.9); WHITE BLOOD COUNT 6.5 K/mm3 (4.0-10.0)
[2021-03-22 10:41] LABS: CALCIUM 8.7 mg/dL (8.5-10.1)
[2021-03-22 10:42] LABS: ALBUMIN 2.5 g/dl (3.4-5.0); BLOOD UREA NITROGEN 12.5 mg/dL (7-18)
[2021-03-22 10:45] LABS: CREATININE 0.5 mg/dL (0.55-1.3)
[2021-03-22 10:46] LABS: BILIRUBIN,TOTAL 0.8 mg/dL (0.2-1); TOT PROT 5.7 g/dl (6.4-8.2)
[2021-03-23] MEDS ORDERED: ceFAZolin SODIUM 1 GM VIAL ONE ×3 (02:07→16:43)
[2021-03-23] MEDS ORDERED: DEXTROSE 5%-WATER - 50 ML IVPB ONE ×3 (02:07→16:43)
[2021-03-23] MEDS: CEFAZOLIN 1 GM in DEXTROSE 5%-WATER - 50 ML IVPB SCH ×3 (02:13→18:21)
[2021-03-23] MEDS: ENOXAPARIN NA (PORCINE) 40 MG/0.4 ML DISP.SYRIN SQ SCH (10:41)
[2021-03-23] MEDS: FERROUS SO4 325 MG TABLET (FP) PO SCH (10:42)
[2021-03-23] MEDS ORDERED: POTASSIUM CHLORIDE ORAL LIQUID 20 MEQ/15 ML PO ONE (14:18)
[2021-03-24] MEDS ORDERED: ceFAZolin SODIUM 1 GM VIAL ONE ×3 (01:39→17:00)
[2021-03-24] MEDS ORDERED: DEXTROSE 5%-WATER - 50 ML IVPB ONE ×3 (01:40→17:00)
[2021-03-24] MEDS: CEFAZOLIN 1 GM in DEXTROSE 5%-WATER - 50 ML IVPB SCH ×3 (02:01→17:02)
[2021-03-24] MEDS: ENOXAPARIN NA (PORCINE) 40 MG/0.4 ML DISP.SYRIN SQ SCH (09:25)
[2021-03-24] MEDS: FERROUS SO4 325 MG TABLET (FP) PO SCH (09:25)
[2021-03-24 10:58] LABS: BASO % 0.7 % (0-2.0); EOS % 5.6 % (0-4.5); HEMATOCRIT 32.8 % (35.4-49); LYMPH % 9.5 % (8-40); MCH 30.7 pg (25.7-33.7); MCHC 33.5 g/dl (32.0-35.9); MEAN CELL VOLUME 91.6 fl (80-96); MEAN PLT VOLUME 9.2 fl (7.5-11.1); NEUT % 76.2 % (42.8-82.8); PLATELET COUNT 249 10^3/uL (134-434); RBC 3.58 M/mm3 (4.00-5.60); RDW 14.6 % (11.9-15.9); WHITE BLOOD COUNT 6.3 K/mm3 (4.0-10.0)
[2021-03-24 11:19] LABS: CALCIUM 8.7 mg/dL (8.5-10.1)
[2021-03-24 11:20] LABS: BLOOD UREA NITROGEN 15.4 mg/dL (7-18)
[2021-03-24 11:23] LABS: CREATININE 0.6 mg/dL (0.55-1.3)
[2021-03-24] MEDS ORDERED: MELATONIN 1 MG TABLET PO SCH (22:00)
[2021-03-25] MEDS ORDERED: ceFAZolin SODIUM 1 GM VIAL ONE ×3 (01:22→16:47)
[2021-03-25] MEDS: CEFAZOLIN 1 GM in DEXTROSE 5%-WATER - 50 ML IVPB SCH ×3 (01:36→17:11)
[2021-03-25] MEDS ORDERED: DEXTROSE 5%-WATER - 50 ML IVPB ONE ×2 (09:06→16:47)
[2021-03-25] MEDS: FERROUS SO4 325 MG TABLET (FP) PO SCH (09:28)
[2021-03-25] MEDS: ENOXAPARIN NA (PORCINE) 40 MG/0.4 ML DISP.SYRIN SQ SCH (09:28)
[2021-03-25 09:41] LABS: HEMATOCRIT 36.3 % (35.4-49); MCH 30.3 pg (25.7-33.7); MEAN CELL VOLUME 92.1 fl (80-96); MEAN PLT VOLUME 9.1 fl (7.5-11.1); PLATELET COUNT 287 10^3/uL (134-434); RBC 3.94 M/mm3 (4.00-5.60); RDW 14.5 % (11.9-15.9); WHITE BLOOD COUNT 6.1 K/mm3 (4.0-10.0)
[2021-03-25 10:08] LABS: BLOOD UREA NITROGEN 14.4 mg/dL (7-18); CALCIUM 8.9 mg/dL (8.5-10.1)
[2021-03-25 10:09] LABS: ALBUMIN 2.8 g/dl (3.4-5.0)
[2021-03-25 10:11] LABS: CREATININE 0.7 mg/dL (0.55-1.3)
[2021-03-25 10:13] LABS: BILIRUBIN,TOTAL 0.8 mg/dL (0.2-1); TOT PROT 6.4 g/dl (6.4-8.2)
[2021-03-25 14:36] VITALS: BP 123/66; PULSE 82; TEMP 98.1
== END 2021-03-25 18:21 | disposition home or self-care (01) | DRG 863 ==
LOC: JER 19:10 → JERBED 23:25 → J6S 03-21 05:37
PROVIDERS: ADMIT Hospitalist
DX: T81.49XA Infection following a procedure, other surgical site, initial encounter (principal); L03.114 Cellulitis of left upper limb; Y83.8 Other surgical procedures as the cause of abnormal reaction of the patient, or of later complication, without mention of misadventure at the time of the procedure; R60.9 Edema, unspecified; R74.8 Abnormal levels of other serum enzymes; D64.9 Anemia, unspecified; N40.1 Benign prostatic hyperplasia with lower urinary tract symptoms
CPT/HCPCS: 36415; 71045-TC-FY; 73090-TC-LT-FY; 80048; 80053; 82728; 83540; 83550; 83735; 85025; 85027; 85045; 87040; 93005; 93010; 97116-GP; 97161-GP; 99285-25; C9803; U0003; U0005